=== PATIENT | male | born 1970 | race African-American/Black ===

== ENCOUNTER 2022-12-11 08:23 | Emergency (ER) | payer OTHER ==
--- OUTSIDE RECORDS SUMMARY | 2022-12-11 08:27 | XMS REPORT | Continuity of Care Document ---
:1970 Author Organization [facility] t Address [address] [place] [address] Care Team Providers Name Role Phone Nathan Burden Primary Care Physician Indu Ramirez Attending Clinician Unknown, Attending Attending Clinician Unavailable INDU HARRY Attending Clinician Unavailable Doctor Unassigned, [place] Attending Clinician Unavailable Nathan Chang MD Attending Clinician Payers Payer Name Policy Type Policy Number Effective Date Expiration Date S ource Problems Condition Condition Condition Status Onset Resolution Last Treating Co mments Source Name Details Category Date Date Treatment Clinician Date No known No known Disease Unive rs active active ity of problems problems [facility] Allergies, Adverse Reactions, Alerts Allergy Allergy Status Severity Reaction(s) Onset Inactive Treating Comm ents Source Name Type Date Date Clinician NO KNOWN Drug Active Univers ALLERGIE Class ity of S [facility] Social History Social Habit Start Date Stop Date Quantity Comments Source Exposure to 2022-11-04 2022-11-14 Yes [facility]-CoV-2 00:00:00 18:00:00 [facility] (event) [place] Tobacco use and 2022-11-14 2022-11-14 Smokeless tobacco Un iversity of exposure 00:00:00 00:00:00 non-user [facility] Sex Assigned At [birth year] [facility] 00:00:00 00:00:00 Smoking Status Start Date Stop Date Source Tobacco smoking consumption [facility] unknown Never smoked tobacco [facility] Medications Ordered Filled Start Stop Current Ordering Indication Dosage Frequency Signature Comments Components Source Medication Medication Date Date Medication? Clinician (SIG) Name Name amLODIPine 2021-11 Yes 5mg Take 5 mg Un estee 5 mg tablet 2-30 by mouth ity of 18:07: in the [place] 13 morning. Medical Branch nirmatrelvi 2021-11 Yes [id number] 3{tbl} Take 3 Univers r-ritonavir 2-30 tablets by it y of (PAXLOVID, 00:00: mouth in [place] EUA,) 300 00 the Medical mg (150 mg morning Branch x 2)-100 mg and 3 tablet tablets in the evening. Immunizations Ordered Filled Immunization Date Status Comments Sourc e Immunization Name Name SARS-COV-2 COVID-19 2021-02-10 Completed Unive rsity of MODERNA 12+ YRS 00:00:00 [facility] ical VACCINE Branch SARS-COV-2 COVID-19 2021-02-10 Completed Unive rsity of MODERNA 12+ YRS 00:00:00 [facility] ical VACCINE Branch SARS-COV-2 COVID-19 2021-01-13 Completed Unive rsity of MODERNA 12+ YRS 00:00:00 [facility] ical VACCINE Branch SARS-COV-2 COVID-19 2021-01-13 Completed Unive rsity of MODERNA 12+ YRS 00:00:00 [facility] ical VACCINE Branch Vital Signs Vital Name Observation Time Observation Value Comments Source Systolic blood 2022-11-15 00:09:00 149 mm[Hg] Univer sity of pressure [facility] Diastolic blood 2022-11-15 00:09:00 92 mm[Hg] Unive rsity of pressure [facility] Heart rate 2022-11-15 00:07:00 48 /min [facility] Body temperature 2022-11-15 00:07:00 37.17 Allie [facility] Respiratory rate 2022-11-15 00:07:00 16 /min [facility] Body weight 2022-11-15 00:07:00 158.759 kg [facility] Oxygen saturation in 2022-11-15 00:07:00 97 /min [facility] blood by [facility] Pulse oximetry Branch Procedures Procedure Date / Time Performed Performing Clinician Sourc e POCT SARS-COV-2 2022-11-15 00:05:00 Indu Harry [place] [facility] [place] ANTIGEN (BINAX NOW) Medical Bran ch ASSIGNMENT OF BENEFITS 2022-11-14 23:53:59 Doctor Unassigned, No [facility] Branch VASCULAR SCREENING 2022-03-06 20:03:32 Nathan Chang [facility] HEART SCAN PLUS CT HEART SCAN PLUS W 2022-03-06 17:51:43 [facility] Plan of Care Planned Activity Planned Date Details Comments Source Future Scheduled 2022-10-28 Hepatitis C screening [facility] Test 08:54:22 (procedure) [code = 094618412] Future Scheduled 2022-10-28 COLONOSCOPY SCREENING [facility] Test 08:54:22 [code = COLONOSCOPY SCREENING] Future Scheduled 2022-10-28 SHINGLES VACCINES (1 Met [facility] Test 08:54:22 of 2) [code = SHINGLES VACCINES (1 of 2)] Future Scheduled 2022-10-28 COVID-19 VACCINE (4 - [facility] Test 08:54:22 Booster for Moderna series) [code = COVID-19 VACCINE (4 - Booster for Moderna series)] Future Scheduled 2022-10-28 INFLUENZA VACCINE [facility] Test 08:54:22 [code = INFLUENZA VACCINE] Encounters Start End Encounter Admission Attending Care Care Encounter Source Date/Time Date/Time Type Type Clinicians Facility Department ID 2022-11-14 2022-11-14 Urgent Indu Harry [facility] [id number] Univers 18:20:00 18:40:00 Care Unknown, Attending HEALTH [id number] [facility] [id number] [place] ZENON?BLEA [id number] [address] MEDICAL OFFICE BUILDING 2022-11-14 2022-11-14 Outpatient R KAMRYN LAJOSE [facility] [id number] [facility] 18:20:00 18:20:00 INDU rojo [facility] 2022-11-14 2022-11-14 Orders Doctor MUSTAFA [id number] Univers 00:00:00 00:00:00 Only Unassigned, EVELIO 350.1.13.10 ity of [place] [facility] 4.2.7.2.686 [place] [id number] [place] [id number] Branch 2022-03-06 2022-03-06 [facility], 1.2.840.1 [id number] Methodi 12:24:17 23:59:00 Encounter Nathan [id number] 3.430.2.7 Hospit a .3.722701 l .8 2022-03-06 2022-03-06 [facility], 1.2.840.1 [id number] Methodi 12:24:02 23:59:00 Encounter Nathan [id number] 3.430.2.7 Hospit a .3.441804 l .8 2022-03-06 2022-03-06 Outpatient [facility] [id number] [address] 00:00:00 00:00:00 NATHAN [address] 2022-03-06 2022-03-06 Outpatient [facility] [id number] [place] 00:00:00 00:00:00 NATHAN [address] 2022-03-06 2022-03-06 Travel 1.2.840.1 [id number] [id number] Methodi 00:00:00 00:00:[address] 3.430.2.7 0.2.7.3.698 Ho spita .3.134508 084.8 l .8 2022-02-17 2022-02-17 Travel 1.2.840.1 1.2.961.037 [id number] Methodi 00:00:00 00:00:[address] 3.430.2.7 0.2.7.3.698 Ho spita .3.340555 084.8 l .8 2022-02-17 2022-02-17 Transcribe [facility], 1.2.840.1 [id number] Methodi 00:00:00 00:00:00 Orders Nathan [id number] 3.430.2.7 Hospit a .3.065568 l .8 Results Test Description Test Time Test Comments Results Result Comments Source POCT SARS-COV-2 ANTIGEN (BINAX NOW) 2022-11-15 00:20:00 Test Item Value Reference Range Interpretation Comme nts POCT SARS-COV-2 ANTIGEN (test code = 86872-6) Positive Not Dete cted A On board controls acceptable with C Line (test code = 3574) Yes Lab Interpretation (test code = 31957-0) Abnormal [facility]
[2022-12-11] MEDS ORDERED: ONDANSETRON 4 MG/2 ML VIAL ONE (09:09)
[2022-12-11] MEDS ORDERED: MORPHINE 4 MG/ML SYR ONE (09:09)
[2022-12-11 09:10] LABS: Urine Blood 2+ (Negative); Urine Glucose Negative (Negative); Urine Protein Negative (Negative); Urine Specific Gravity 1.025 (1.005-1.030)
[2022-12-11 09:49] LABS: Absolute Lymphocytes (CBC) 1.6 K/uL (0.7-4.9); Hematocrit 38.7 % (39.6-49.0); Lymphocytes % 29.3 % (15.3-44.8); MCV 78.9 fL (80-100); MPV 9.1 fL (7.6-11.3); RBC Red Blood Cell Count 4.91 M/uL (4.33-5.43)
[2022-12-11 10:11] LABS: Albumin 3.4 g/dL (3.4-5.0); Bilirubin Total 0.3 mg/dL (0.2-1.0); Protein, Total 8.1 g/dL (6.4-8.2)
--- NOTE | 2022-12-11 10:21 | RAD REPORT ---
EXAM DESCRIPTION: CT - Stone Protocol - 12/11/2022 10:10 am CLINICAL HISTORY: Flank pain. right flank pain COMPARISON: CT-STONE PROTOCOL dated 01/31/2011 TECHNIQUE: Axial images were obtained without oral or IV contrast. Lack of contrast limits solid org an and vascular assessment. The [id number] spans the entirety of the system partially obscuring uppermost abdomen and lung bases. Coronal reformatted images were obtained and reviewed. All CT scans are performed using dose optimization technique as appropriate and may include automated exposure control or mA/KV adjustment according to patient size. FINDINGS: The lower lung krishna are clear. Postsurgical changes affect the stomach. Small hiatal her claire. Imaged portions of the liver and spleen show no suspicious findings on non-contrast imaging. The panc reas and adrenal glands are normal. No pathologic lymphadenopathy in the abdomen or pelvis. Punctate 1 mm calculus seen right UVJ with mild right hydronephrosis. Additional punctate stones are seen in both kidneys. No bowel obstruction, free air, free fluid or abscess. Normal appendix. No significant bony abnormality. IMPRESSION: Tiny punctate calculus right UVJ with mild right hydronephrosis. Punctate bilateral nephrolithiasis without hydronephrosis.
[2022-12-11] MEDS ORDERED: NA CHLORIDE 0.9% 1,000 ML ONE (10:38)
[2022-12-11] MEDS ORDERED: KETOROLAC 30 MG/ML INJ ONE (10:38)
[2022-12-11] MEDS ORDERED: TAMSULOSIN 0.4 MG SR CAP ONE (10:38)
--- NOTE | 2022-12-11 11:13 | ER ---
Nurse's Notes [facility] Name: Matt Paniagua Age: 52 yrs Sex: Male : 1970 Arrival Date: 12/11/2022 Time: 08:32 Bed 7 Private MD: Diagnosis: Calculus of ureter Presentation: 12/11 08:52 Chief complaint: Patient states: right low back pain since yesterday , happened after iw lifting something, took a tylenol but the pain got worse this morning, denies blood in urin, he feels like he has to urinate and he had some pain with urination this morning , hx of kidney stone 10 years ago. Coronavirus screen: At this time, the client does not indicate any symptoms associated with coronavirus-19. Ebola Screen: Patient negative for fever greater than or equal to 101.5 degrees Fahrenheit, and additional compatible Ebola Virus Disease symptoms Patient denies exposure to infectious person. Patient denies travel to an Ebola-affected area in the 21 days before illness onset. No symptoms or risks identified at this time. Initial Sepsis Screen: Does the patient meet any 2 criteria? No. Patient's initial sepsis screen is negative. Does the patient have a suspected source of infection? No. Patient's initial sepsis screen is negative. Risk Assessment: Do you want to hurt yourself or someone else? Patient reports no desire to harm self or others. Onset of symptoms was December 11, 2022. 08:52 Method Of Arrival: Ambulatory iw 08:52 Acuity: NASIMA 3 iw Historical: - Allergies: 08:54 No Known Allergies; iw - Home Meds: 08:54 amlodipine oral [Active]; multivitamin oral [Active]; iw - PMHx: 08:54 Kidney stone; Hypertensive disorder; iw - PSHx: 08:54 gastric bypass; cyst removed from leg; iw - Immunization history:: Client reports receiving the 2nd dose of the Covid vaccine. - Social history:: Smoking status: Patient denies any tobacco usage or history of. Screenin:30 [facility] ED Fall Risk Assessment (Adult) History of falling in the last 3 months, ld1 including since admission No falls in past 3 months (0 pts). Abuse screen: Denies threats or abuse. Denies injuries from another. Nutritional screening: No deficits noted. Tuberculosis screening: No symptoms or risk factors identified. Assessment: 09:30 General: Appears in no apparent distress. uncomfortable, Behavior is cooperative, ld1 anxious. Pain: Complains of pain in right low back Pain does not radiate. Pain currently is 9 out of 10 on a pain scale. Quality of pain is described as pressure, throbbing, Pain began 1 day ago. 09:30 Neuro: Level of Consciousness is awake, alert, obeys commands, Oriented to person, ld1 place, time, situation. Cardiovascular: Capillary refill < 3 seconds Patient's skin is warm and dry. Rhythm is sinus bradycardia. Respiratory: Airway is patent Respiratory effort is even, unlabored. GI: Abdomen is flat, non-distended. EENT: No signs and/or symptoms were reported regarding the EENT system. Derm: No signs and/or symptoms reported regarding the dermatologic system. 09:30 : Reports pain in right flank(s), urgency. ld1 10:12 Reassessment: pt transported back from CT via stretcher. vg1 10:39 Reassessment: Patient appears in no apparent distress at this time. Patient and/or ld1 family updated on plan of care and expected duration. Pain level reassessed. Patient is alert, oriented x 3, equal unlabored respirations, skin warm/dry/pink. Vital Signs: 08:52 BP 151 / 90; Pulse 51; Resp 16; Temp 97.8; Pulse Ox 100% on R/A; Weight 149.69 kg; iw Height 6 ft. 1 in. (185.42 cm); Pain 8/10; 09:30 BP 129 / 79; Pulse 53; Resp 18; Pulse Ox 97% on R/A; ld1 10:39 BP 119 / 73; Pulse 49; Resp 18; Pulse Ox 100% on R/A; Pain 8/10; ld1 08:52 Body Mass Index 43.54 (149.69 kg, 185.42 cm) iw ED Course: 08:32 Patient arrived in ED. am2 08:34 Wai Milan PA is PHCP. jmm 08:34 Isael Peck MD is Attending Physician. jmm 08:54 Triage completed. iw 08:54 Arm band placed on. iw 08:57 Josefina Henning, KATELYN is Primary Nurse. ld1 09:30 Patient has correct armband on for positive identification. Placed in gown. Bed in low ld1 position. Call light in reach. Side rails up X2. forester aide on. Pulse ox on. NIBP on. Door closed. Noise minimized. Warm blanket given. 09:30 Initial lab(s) drawn, by me, sent to lab. Inserted saline lock: 22 gauge in left vg1 antecubital area, using aseptic technique. Blood collected. 09:30 No provider procedures requiring assistance completed. ld1 10:12 Stone Protocol In Process Unspecified. EDMS 11:12 Saran Farooq MD is Referral Physician. m 11:41 IV discontinued, intact, bleeding controlled, No redness/swelling at site. ld1 Administered Medications: 09:31 Drug: Zofran (Ondansetron) 4 mg Route: IVP; Site: left antecubital; vg1 10:39 Follow up: Response: No adverse reaction ld1 09:33 Drug: morphine 4 mg Route: IVP; Infused Over: 4 mins; Site: left antecubital; vg1 10:39 Follow up: Response: Pain is unchanged, physician notified ld1 10:39 Drug: NS 0.9% 1000 ml Route: IV; Rate: 1 bolus; Site: left antecubital; ld1 11:35 Follow up: IV Status: Completed infusion; IV Intake: 1000ml vg1 10:39 Drug: Flomax (tamsulosin) 0.4 mg Route: PO; ld1 10:39 Drug: Ketorolac 30 mg Route: IVP; Site: left antecubital; ld1 Medication: 09:30 VIS not applicable for this client. ld1 Intake: 11:35 IV: 1000ml; Total: 1000ml. vg1 Outcome: 11:12 Discharge ordered by . [facility] 11:41 Discharged to home ambulatory, with family. ld1 11:41 Condition: stable 11:41 Discharge instructions given to patient, family, Instructed on discharge instructions, follow up and referral plans. medication usage, Demonstrated understanding of instructions, follow-up care, medications, Prescriptions given X 2. 11:42 Patient left the ED. ld1 Signatures: Dispatcher [employer] EDMS Wai Milan PA PA Alia Drummond RN RN iw Moreno, Amanda am2 Colleen Salinas RN RN 1 Dibbern, Josefina, RN RN ld1 Corrections: (The following items were deleted from the chart) 09:49 09:30 : No signs and/or symptoms were reported regarding the genitourinary system. ld1ld1
--- NOTE | 2022-12-11 11:14 | EDPHYS ---
Physician Documentation [facility] Name: Matt Paniagua Age: 52 yrs Sex: Male : 1970 Arrival Date: 12/11/2022 Time: 08:32 Bed 7 Private MD: ED Physician Isael Peck HPI: 12/11 09:01 This 52 yrs old Black Male presents to ER via Ambulatory with complaints of Back Pain. jm 09:01 The patient presents with pain that is acute. Onset: The symptoms/episode jmm began/occurred acutely, yesterday. The pain radiates to the abdomen. Associated signs and symptoms: Pertinent positives: abdominal pain. This a 52-year-old male with history of previous kidney stones and hypertension the presents emerged part with complaints of right flank pain beginning yesterday which was mild. Pain intensified last night along with episodes of nausea. Denies any diarrhea. Denies hematuria. Denies fever. Historical: - Allergies: 08:54 No Known Allergies; iw - Home Meds: 08:54 amlodipine oral [Active]; multivitamin oral [Active]; iw - PMHx: 08:54 Kidney stone; Hypertensive disorder; iw - PSHx: 08:54 gastric bypass; cyst removed from leg; iw - Immunization history:: Client reports receiving the 2nd dose of the Covid vaccine. - Social history:: Smoking status: Patient denies any tobacco usage or history of. ROS: 09:01 Constitutional: Negative for fever, chills, and weight loss, Cardiovascular: Negative jmm for chest pain, palpitations, and edema, Respiratory: Negative for shortness of breath, cough, wheezing, and pleuritic chest pain. 09:01 Abdomen/GI: Positive for abdominal pain, nausea. 09:01 Back: Positive for flank pain, on the right. 09:01 All other systems are negative. Exam: 09:01 Constitutional: This is a well developed, well nourished patient who is awake, alert, jmm and in no acute distress. Head/Face: atraumatic. Eyes: EOMI, no conjunctival erythema appreciated ENT: Moist Mucus Membranes Neck: Trachea midline, Supple Chest/axilla: Normal chest wall appearance and motion. Cardiovascular: Regular rate and rhythm. No edema appreciated Respiratory: Normal respirations, no respiratory distress appreciated Abdomen/GI: Non distended 09:01 Skin: General appearance color normal MS/ Extremity: Moves all extremities, no obvious deformities appreciated, no edema noted to the lower extremities Neuro: Awake and alert Psych: Behavior is normal, Mood is normal, Patient is cooperative and pleasant 09:01 Back: CVA tenderness, that is mild, is noted on the right. Vital Signs: 08:52 BP 151 / 90; Pulse 51; Resp 16; Temp 97.8; Pulse Ox 100% on R/A; Weight 149.69 kg; iw Height 6 ft. 1 in. (185.42 cm); Pain 8/10; 09:30 BP 129 / 79; Pulse 53; Resp 18; Pulse Ox 97% on R/A; ld1 10:39 BP 119 / 73; Pulse 49; Resp 18; Pulse Ox 100% on R/A; Pain 8/10; ld1 08:52 Body Mass Index 43.54 (149.69 kg, 185.42 cm) iw MDM: 09:01 Patient medically screened. [facility] 11:11 Data reviewed: vital signs, nurses notes. I considered the following discharge [facility] prescriptions or medication management in the emergency department Medications were administered in the Emergency Department. See MAR. Historians other than the Patient: Spouse/Significant Other: Significant other. Counseling: I had a detailed discussion with the patient and/or guardian regarding: the historical points, exam findings, and any diagnostic results supporting the discharge/admit diagnosis, lab results, radiology results, the need for outpatient follow up, to return to the emergency department if symptoms worsen or persist or if there are any questions or concerns that arise at home. ED course: Pain is alleviated in the ED. Urine did not show any signs of infection. Patient does not appear septic. Patient advised to follow with urology for further evaluation otherwise given strict return precautions. Patient understood and agrees to plan of care.. 12/11 09:02 Order name: CBC with Diff; Complete Time: 09:51 [facility] 12/11 09:02 Order name: CMP; Complete Time: 10:14 [facility] 12/11 09:02 Order name: Lipase; Complete Time: 10:14 [facility] 12/11 09:10 Order name: Urine Dipstick-Ancillary; Complete Time: 09:13 [facility] 12/11 09:51 Order name: CT Stone Protocol [facility] 12/11 09:55 Order name: Stone Protocol; Complete Time: 10:22 [facility] 12/11 09:02 Order name: IV Saline Lock; Complete Time: 09:43 [facility] 12/11 09:02 Order name: Labs collected and sent; Complete Time: 43 [facility] 12/11 09:02 Order name: Urine Dipstick-Ancillary (obtain specimen); Complete Time: : [facility] Administered Medications: 09:31 Drug: Zofran (Ondansetron) 4 mg Route: IVP; Site: left antecubital; vg1 10:39 Follow up: Response: No adverse reaction ld1 09:33 Drug: morphine 4 mg Route: IVP; Infused Over: 4 mins; Site: left antecubital; vg1 10:39 Follow up: Response: Pain is unchanged, physician notified ld1 10:39 Drug: NS 0.9% 1000 ml Route: IV; Rate: 1 bolus; Site: left antecubital; ld1 11:35 Follow up: IV Status: Completed infusion; IV Intake: 1000ml vg1 10:39 Drug: Flomax (tamsulosin) 0.4 mg Route: PO; ld1 10:39 Drug: Ketorolac 30 mg Route: IVP; Site: left antecubital; ld1 Disposition: 13:32 I reviewed the patient's care provided by the Advanced Practice Provider and agree with jrGlenis the diagnosis and treatment plan. Disposition Summary: 12/11/22 11:12 Discharge Ordered Location: Home [facility] Condition: Stable [facility] Diagnosis - Calculus of ureter [facility] Followup: [facility] - With: Saran Farooq MD - When: 2 - 3 days - Reason: Recheck today's complaints, Continuance of care, Re-evaluation by your physician Discharge Instructions: - Discharge Summary Sheet [facility] - Kidney Stones [facility] - Dietary Guidelines to Help Prevent Kidney Stones [facility] Forms: - Medication Reconciliation Form [facility] - Thank You Letter [facility] - Antibiotic Education [facility] - Prescription Opioid Use [facility] Prescriptions: - ondansetron 4 mg Oral tablet,disintegrating - place 1 tablet by TRANSLINGUAL route every 4-6 hours As needed; 20 tablet; [facility] Refills: 0, Product Selection Permitted - Diclofenac Sodium 75 mg Oral Tablet Sustained Release - take 1 tablet by ORAL route 2 times per day; 30 tablet; Refills: 0, Product [facility] Selection Permitted Signatures: Dispatcher [employer] Wai Saleh PA PA jmm Williams, Irene, RN RN iw Colleen Salinas, RN RN vg1 Josefina Henning RN RN ld1 Isael Peck MD MD [id number]
[2022-12-11 12:22] VITALS: TEMP 97.8
[2022-12-11 12:25] VITALS: BP 119/73; O2SAT 100
== END 2022-12-11 11:42 | disposition home or self-care (01) ==
LOC: ER 08:23
DX: N20.1 Calculus of ureter (principal); Z87.442 Personal history of urinary calculi; I10 Essential (primary) hypertension
CPT/HCPCS: 96361; 85025; 36415; 81003; 83690; 80053; 76377; 74176; 96375; 96374; 99284; J7030; J2405

== ENCOUNTER 2023-04-17 09:22 | Day surgery (SDC) | payer OTHER ==
[2023-04-14 09:05] LABS: Hematocrit 36.8 % (39.6-49.0); Lymphocytes % 38.9 % (15.3-44.8); MPV 8.5 fL (7.6-11.3); RBC Red Blood Cell Count 4.66 M/uL (4.33-5.43)
[2023-04-14 09:13] LABS: Potassium 4.1 mEq/L (3.5-5.1)
--- NOTE | 2023-04-15 07:08 | EKG ---
Test Date: 2023-04-14 Test Time: 08:41:28 Fish Processing Supervisor: ANTHONY MEASUREMENT RESULTS: Intervals: Rate: 55 RI: 180 QRSD: 110 QT: 422 QTc: 403 Protivin: P: 62 RI: 180 QRS: 48 T: 28 INTERPRETIVE STATEMENTS: Sinus bradycardia Otherwise normal ECG Compared to ECG 06/11/2003 18:29:00 Sinus rhythm no longer present ST (T wave) deviation no longer present Possible ischemia no longer present Electronically Signed On 04-15-23 07:06:40 CDT by Steve Mendez
[2023-04-17] MEDS ORDERED: CEFAZOLIN SODIUM 1 GM/VIAL ONE (09:39)
[2023-04-17] MEDS ORDERED: Ringers Lactate 1,000 ML IV ONE (09:39)
[2023-04-17] MEDS ORDERED: BUPIVACAINE 0.25% PF 30 ML VIAL ONE (11:25)
[2023-04-17] MEDS ORDERED: FENTANYL CITR 100 MCG/2 ML ONE (11:42)
[2023-04-17] MEDS ORDERED: propofoL 200 MG/20 ML VIAL IV ONE ×2 (11:44→12:04)
[2023-04-17] MEDS ORDERED: MIDAZOLAM HCL 2 MG/2 ML INJ ONE (11:45)
[2023-04-17] MEDS ORDERED: LIDOCAINE 2% MPF 5 ML VIAL ONE (11:45)
[2023-04-17] MEDS ORDERED: ONDANSETRON 4 MG/2 ML VIAL ONE (11:46)
[2023-04-17] MEDS ORDERED: dexAMETHasone 10 MG/ML VIAL ONE (12:11)
[2023-04-17] MEDS ORDERED: KETOROLAC 30 MG/ML INJ ONE (12:53)
[2023-04-17] MEDS: HYDROMORPHONE HCL 1 MG/ML INJ ONE ×2 (13:11→13:29)
[2023-04-17] MEDS: MEPERIDINE HCL 25 MG/ML SYR ONE ×2 (13:18→13:24)
[2023-04-17 13:21] VITALS: O2SAT 100
[2023-04-17] MEDS ORDERED: HYDROCODONE/APAP 7.5/325 MG TAB ONE (15:02)
[2023-04-17 16:11] VITALS: BP 113/72; TEMP 97.4
--- NOTE | 2023-04-17 22:36 | OP ---
Date of Procedure: 04/17/2023 Surgeon: Chris Evans MD Preoperative Diagnosis: Right knee pain with mechanical symptoms, probable meniscal tear or tears, a lso with associated arthritic changes. Postoperative Diagnoses: 1.Very large displaceable medial meniscal tear. 2.Fraying of the lateral meniscus. 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 Procedure: Debridement medial meniscal tear and lateral meniscal fraying. Estimated Blood Loss: Less than 10 cc. Complications: There were no complications. Specimen: No pathology specimen sent. Indications For Operation: Mr. Paniagua is a 52-year-old male who is actively employed. He is compl aining of mechanical symptoms including popping, clicking, as well as pain associated with his knee. He has x-rays and MRI, which demonstrate both medial meniscal tear, as well as significant degenerat marilyn articular changes. We discussed with him at length that surgical treatment for arthritis would i nvolve arthroplasty, however, mechanical symptoms can be treated with arthroscopy. This appears to b e at least a major complaint that he is having. Risks, benefits, and alternatives of this particular procedure again discussed with him. He states he understands things as presented and wishes to proc eed. Description Of Procedure: The patient was taken to the operating room and placed in supine position. General anesthesia was obtained by the staff. Following this, a well-padded tourniquet was placed on superior right thigh. Right lower extremity was then prepped and draped in the usual sterile fas ion procedure. Following this, a standard superior medial arthroscopy portal was then placed with li beration of approximately 10 cc of scanty synovial fluid, which appears relatively normal. Following this, a standard inferolateral arthroscopy portal was then established atraumatically with 1 pass. The knee was then sequentially examined including suprapatellar pouch, medial and lateral gutters, me dial and lateral compartments, as well as notch, patellofemoral joint. Operative findings included s ome arthritic changes of the patellofemoral joint, as well as extensive arthritic changes of the medi al compartment consistent with grade 4 chondromalacia. Also seen is a very large and displaced full medial meniscal tear with essentially full thickness loss at its midsubstance with a flap anteriorly which appears to be easily displaced but within the joint. Also seen is some fraying of the lateral meniscus, as well as diffuse synovial hypertrophy. A standard inferomedial arthroscopy portal was th en performed using a needle for localization as the knee is quite large. This allows for easy entry as the working portal and the medial meniscus was then debrided back to a firm hook, stable, well con toured base using a combination of hand instruments and shaver. Attention was then turned to the lat eral compartment and a small amount of debridement was done there. The knee was again examined, alth ough the areas without any further pathology seen which was amenable to arthroscopic intervention. T he inferior arthroscopy portals were then stapled shut. Superior medial arthroscopy portal was then used for placement of Marcaine with epinephrine which was then stapled. The patient was placed in a well-padded sterile dressing, awakened, and taken to recovery room. JACKSON Voice ID: [id number] Report ID: [id number]
== END 2023-04-17 15:30 | disposition home or self-care (01) ==
LOC: OR 09:22
PROVIDERS: ATTEND Orthopaedic Surgery
PROC: 0SBC4ZZ Excision of Right Knee Joint, Percutaneous Endoscopic Approach (ICD-10-PCS; principal; 2023-04-17 11:30)
DX: S83.241D Other tear of medial meniscus, current injury, right knee, subsequent encounter (principal); M17.11 Unilateral primary osteoarthritis, right knee; M94.261 Chondromalacia, right knee
CPT/HCPCS: 93005; 85025; 80048; 36415; 29877; J2704 ×2; J2001; J2250; J3010; J1100; J2175; J1170; J2405; J7120; J0690

== ENCOUNTER 2023-10-21 08:07 | Emergency (ER) | payer OTHER ==
[2023-10-21] MEDS ORDERED: FAMOTIDINE 20 MG/2 ML VIAL IV ONE (08:49)
[2023-10-21 09:22] LABS: Absolute Lymphocytes (CBC) 0.9 K/uL (0.7-4.9); Hematocrit 36.5 % (39.6-49.0); Lymphocytes % 15.5 % (15.3-44.8); MPV 8.9 fL (7.6-11.3); Platelets 103 thou/uL (152-406); RBC Red Blood Cell Count 4.62 M/uL (4.33-5.43)
--- NOTE | 2023-10-21 09:27 | RAD REPORT ---
EXAM DESCRIPTION: Stephanet Single View10/21/2023 8:52 am CLINICAL HISTORY: Cough;Dyspnea COMPARISON: CHEST PA AND LAT 2 VIEW dated 08/21/2014; ABDOMEN 1 VIEW KUB dated 04/27/2013 TECHNIQUE: Portable AP view of the chest. FINDINGS: New patchy left mid to lower lung airspace opacities. Mild interstitial prominence in the right lower lung, less conspicuous on the view zoned to the lower lungs. . No pneumothorax or effusi on. The cardiomediastinal contours are unremarkable. IMPRESSION: New patchy left mid to lower lung airspace opacities concerning for developing pneumonia .
[2023-10-21 09:34] LABS: Protime INR 1.04
[2023-10-21 09:35] LABS: SARS-CoV-2 Antigen Rapid Res Negative (Negative)
[2023-10-21 09:47] LABS: Bilirubin Total 0.5 mg/dL (0.2-1.0); Potassium 3.4 mEq/L (3.5-5.1); Protein, Total 7.1 g/dL (6.4-8.2); Troponin High Sensitivity 14.3 pg/mL (<58.9)
[2023-10-21] MEDS ORDERED: AZITHROMYCIN 500 MG INJ IVPB ONE (10:16)
[2023-10-21] MEDS ORDERED: NA CHLORIDE 0.9% 250 ML ONE (10:16)
[2023-10-21] MEDS ORDERED: CEFTRIAXONE 1000 MG/VIAL ONE (10:16)
--- NOTE | 2023-10-21 11:05 | ER ---
Nurse's Notes [facility] Name: Matt Paniagua Age: 53 yrs Sex: Male : 1970 Arrival Date: 10/21/2023 Time: 08:07 Bed 3 Private MD: Aung Chang V Diagnosis: Pneumonia, unspecified organism Presentation: 10/21 08:10 Chief complaint: Patient states: "I woke up with acid reflux and trouble breathing". aa5 Pt's states "he also had chills and it sounds to me like he probably aspirated,his oxygen level was 88% at home and I gave him Tylenol and Aleve around 6am". Pt also c/o cough and burning chest pain with inspiration. 08:10 Coronavirus screen: cough unrelated to allergies, shortness of breath. Ebola Screen: aa5 Patient denies travel to an Ebola-affected area in the 21 days before illness onset. Initial Sepsis Screen: Does the patient meet any 2 criteria? No. Patient's initial sepsis screen is negative. Does the patient have a suspected source of infection? No. Patient's initial sepsis screen is negative. Risk Assessment: Do you want to hurt yourself or someone else? Patient reports no desire to harm self or others. Onset of symptoms was October 21, 2023. 08:10 Acuity: NASIMA 3 aa5 08:10 Method Of Arrival: Wheelchair aa5 Triage Assessment: 08:15 General: Appears in no apparent distress. uncomfortable, Behavior is calm, cooperative. rs5 Respiratory: Respiratory: Reports shortness of breath at rest. Historical: - Allergies: 08:12 No Known Drug Allergies; ll1 - PMHx: 08:12 Hypertensive disorder; Kidney stone; ll1 08:12 DVT; Gout; Acid Reflux; aa5 - PSHx: 08:12 cyst removed from leg; Gastric Bypass; ll1 08:12 Knee sx for meniscus tear; aa5 - Immunization history:: Adult Immunizations up to date. - Social history:: Smoking status: Patient denies any tobacco usage or history of. - Family history:: not pertinent. - Hospitalizations: : No recent hospitalization is reported. Screenin:15 [facility] [place] ED Fall Risk Assessment (Adult) History of falling in the last 3 months, rs5 including since admission No falls in past 3 months (0 pts) Confusion or Disorientation No (0 pts) Intoxicated or Sedated No (0 pts) Impaired Gait No (0 pts) Mobility Assist Device Used No (0 pt) Altered Elimination No (0 pt) Score/Fall Risk Level 0 - 2 = Low Risk Oriented to surroundings, Maintained a safe environment. Abuse screen: Denies threats or abuse. Nutritional screening: No deficits noted. Tuberculosis screening: No symptoms or risk factors identified. Assessment: 08:15 General: Appears in no apparent distress. uncomfortable, Behavior is calm, cooperative. rs5 Pain: Complains of pain in chest Pain does not radiate. Pain currently is 3 out of 10 on a pain scale. Quality of pain is described as burning, Pain began 4 hours ago. Is continuous, Aggravated by breathing in deeply. Neuro: Level of Consciousness is awake, alert, obeys commands, Oriented to person, place, time, situation. Cardiovascular: Heart tones S1 S2 present Rhythm is regular. Respiratory: Airway is patent Respiratory effort is even, unlabored, Respiratory pattern is regular, symmetrical, Breath sounds are clear bilaterally. GI: Abdomen is round non-distended, Bowel sounds present X 4 quads. Abd is soft and non tender X 4 quads. 08:15 : No signs and/or symptoms were reported regarding the genitourinary system. EENT: No rs5 signs and/or symptoms were reported regarding the EENT system. Derm: Skin is intact, Skin is dry, Skin is normal, Skin temperature is warm. Musculoskeletal: Range of motion: intact in all extremities, swelling noted to lower extremities bilat, pt states "my legs are always like this". 09:05 Pain: Denies pain. rs5 09:05 Reassessment: Patient and/or family updated on plan of care and expected duration. Pain rs5 level reassessed. Patient is alert, oriented x 3, equal unlabored respirations, skin warm/dry/pink. 10:00 Reassessment: Patient and/or family updated on plan of care and expected duration. Pain rs5 level reassessed. Patient is alert, oriented x 3, equal unlabored respirations, skin warm/dry/pink. 11:15 Reassessment: No changes from previously documented assessment. rs5 Vital Signs: 08:10 BP 140 / 86; Pulse 83; Resp 20 S; Temp 98.8(O); Pulse Ox 96% on R/A; aa5 09:10 BP 128 / 76; Pulse 77; Resp 18; Pulse Ox 99% on R/A; rs5 11:10 BP 127 / 72; Pulse 80; Resp 17; Pulse Ox 99% on R/A; rs5 ED Course: 08:09 Patient arrived in ED. rg4 08:10 Paola Iglesias MD is Private Physician. rg4 08:10 Aung Chang MD is Private Physician. rg4 08:10 Arm band placed on Patient placed in an exam room, on a stretcher. aa5 08:12 Jhoan Wilkes MD is Attending Physician. rn 08:15 Patient has correct armband on for positive identification. Fall risk band placed. rs5 Placed in gown. Bed in low position. Side rails up X2. 08:18 Doug Coe, KATELYN is Primary Nurse. rs5 08:26 Triage completed. aa5 08:37 Inserted saline lock: 20 gauge in left antecubital area, using aseptic technique. Blood rs5 collected. 08:54 Chest Single View XRAY In Process Unspecified. EDMS 11:32 No provider procedures requiring assistance completed. IV discontinued, intact, rs5 bleeding controlled, No redness/swelling at site. Pressure dressing applied. Administered Medications: 08:45 Drug: Famotidine IVP 20 mg IVP once; dilute with 10 mL 0.9% NaCl; give over 2 minutes rs5 Route: IVP; Site: left antecubital; 09:05 Follow up: Response: No adverse reaction; Pain is decreased rs5 10:11 Drug: Rocephin IV 1 grams IV at calculated rate once; Given slow IV push per pharmacy rs5 instructions Route: IV; Rate: calculated rate; Site: left antecubital; 10:30 Follow up: Response: No adverse reaction rs5 10:11 Drug: Zithromax IVPB 500 mg IVPB once over 1 hrs; mix in 250 mL NS Route: IVPB; Infused rs5 Over: 1 hrs; Site: left antecubital; 10:30 Follow up: Response: No adverse reaction rs5 Medication: 11:33 VIS not applicable for this client. rs5 Outcome: 11:04 Discharge ordered by . rn 11:32 Discharged to home ambulatory, rs5 11:32 Condition: stable 11:32 Discharge instructions given to patient, family, Instructed on discharge instructions, follow up and referral plans. Demonstrated understanding of instructions, follow-up care, 11:35 Patient left the ED. rs5 Signatures: Dispatcher [employer] EDJhoan Tapia MD MD rn Calderon, Audri RN RN [email or web address] Gina Salinas rg4 Bibi Womack RN RN ll1 Doug Coe RN RN rs5 Corrections: (The following items were deleted from the chart) 08:41 08:12 Arm band placed on Patient placed in an exam room, on a stretcher, [place] [address] 09:53 08:15 Musculoskeletal: Range of motion: intact in all extremities, rs5 rs5
--- NOTE | 2023-10-21 11:05 | EDPHYS ---
Physician Documentation [facility] Name: Matt Paniagua Age: 53 yrs Sex: Male : 1970 Arrival Date: 10/21/2023 Time: 08:07 Bed 3 Private MD: Aung Chang V ED Physician Jhoan Wilkes HPI: 10/21 10:57 This 53 yrs old Black Male presents to ER via Wheelchair with complaints of Breathing rn Difficulty. 10:57 The patient has shortness of breath at rest, with light activity. Onset: The rn symptoms/episode began/occurred last night. Duration: The symptoms are intermittent. The patient's shortness of breath is aggravated by coughing, light activity, is alleviated by nebulizer treatment, rest. Associated signs and symptoms: Pertinent positives: non-productive cough, Pertinent negatives: fever, hemoptysis. Severity of symptoms: At their worst the symptoms were mild in the emergency department the symptoms have improved. The patient has not experienced similar symptoms in the past. Patient and report cough for a few days now, shortness of breath that got worse last night, felt may be some acid reflux and possibly aspirated per . Oxygen was 90% this morning and given nebulizer treatment with improvement of symptoms. No fever. Reports pain when takes a deep breath on the right side. No abdominal pain.. Historical: - Allergies: 08:12 No Known Drug Allergies; ll1 - PMHx: 08:12 Hypertensive disorder; Kidney stone; ll1 08:12 DVT; Gout; Acid Reflux; aa5 - PSHx: 08:12 cyst removed from leg; Gastric Bypass; ll1 08:12 Knee sx for meniscus tear; aa5 - Immunization history:: Adult Immunizations up to date. - Social history:: Smoking status: Patient denies any tobacco usage or history of. - Family history:: not pertinent. - Hospitalizations: : No recent hospitalization is reported. ROS: 10:57 Constitutional: Negative for fever, chills, and weight loss, Eyes: Negative for injury, rn pain, redness, and discharge, Neck: Negative for injury, pain, and swelling, Cardiovascular: Positive for right-sided chest pain with deep breath Respiratory: Positive for cough, mild shortness of breath Abdomen/GI: Negative for abdominal pain, nausea, vomiting, diarrhea, and constipation, Back: Negative for injury and pain, MS/Extremity: Negative for injury and deformity, Skin: Negative for injury, rash, and discoloration, Neuro: Negative for headache, weakness, numbness, tingling, and seizure, Exam: 10:57 Constitutional: This is a well developed, well nourished patient who is awake, alert, rn and in no acute distress. Head/Face: Normocephalic, atraumatic. Cardiovascular: Regular rate and rhythm. No pulse deficits. Respiratory: Clear bilateral breath sounds. No tachypnea. No wheezing. Abdomen/GI: Soft, non-tender MS/ Extremity: Pulses equal, no cyanosis. Neuro: Awake and alert, GCS 15 Vital Signs: 08:10 BP 140 / 86; Pulse 83; Resp 20 S; Temp 98.8(O); Pulse Ox 96% on R/A; aa5 09:10 BP 128 / 76; Pulse 77; Resp 18; Pulse Ox 99% on R/A; rs5 11:10 BP 127 / 72; Pulse 80; Resp 17; Pulse Ox 99% on R/A; rs5 MDM: 08:12 Patient medically screened. rn 10:57 Differential diagnosis: Anemia Anxiety Reaction Bronchitis Myocardial Infarction rn pneumonia, Pneumothorax pulmonary edema. 11:00 Data reviewed: vital signs, nurses notes, lab test result(s), radiologic studies, plain rn films, and as a result, I will admit patient. Consideration of Admission/Observation Escalation of care including admission/observation considered. Patient and declined admission, want to go home. Independent interpretation of the following test(s) in the Emergency Department X-Ray: My interpretation is Chest x-ray images with bibasilar opacities, possible pneumonia per my interpretation.. Counseling: I had a detailed discussion with the patient and/or guardian regarding the historical points, exam findings, and any diagnostic results supporting the discharge/admit diagnosis, lab results, radiology results, to return to the emergency department if symptoms worsen or persist or if there are any questions or concerns that arise at home. Response to treatment: the patient's symptoms have markedly improved after treatment, Oxygen now 99% without oxygen therapy or inhaler or nebulizer here., and as a result, I will discharge patient. ED course: Spoke with patient and regarding possible admission, they declined, they would rather go home with antibiotics and return if anything worsens. states knows what to look for, has pulse oximeter at home, has nebulizer at home, requests refill of albuterol. 12 08:19 Order name: Blood Culture Adult (2) rn 10/21 08:19 Order name: CBC with Diff; Complete Time: 09:42 rn 10/21 08:19 Order name: CMP; Complete Time: 11:00 rn 10/21 08:19 Order name: Lactate w/ 2H reflex if indic.; Complete Time: 09:42 rn 10/21 08:19 Order name: Protime (+inr); Complete Time: 09:42 rn 10/21 08:19 Order name: Ptt, Activated; Complete Time: 09:42 rn 10/21 08:19 Order name: Flu; Complete Time: 09:42 rn 10/21 08:19 Order name: SARS RAPID; Complete Time: 09:42 rn 10/21 08:19 Order name: Troponin High Sensitivity; Complete Time: 11:00 rn 10/21 08:19 Order name: BNP; Complete Time: 11:00 rn 10/21 09:13 Order name: Glucose, Ancillary Testing; Complete Time: 09:42 EDMS 10/21 08:19 Order name: Chest Single View XRAY; Complete Time: 09:42 rn 10/21 08:19 Order name: Accucheck; Complete Time: 08:40 rn 10/21 08:19 Order name: Cardiac monitoring; Complete Time: 08:24 rn 10/21 08:19 Order name: EKG - Nurse/Tech; Complete Time: 08:36 rn 10/21 08:19 Order name: IV Saline Lock - Large Bore; Complete Time: 08:36 rn 10/21 08:19 Order name: Labs collected and sent; Complete Time: 08:36 rn 10/21 08:19 Order name: O2 Per Protocol; Complete Time: 08:24 rn 10/21 08:19 Order name: O2 Sat Monitoring; Complete Time: 08:24 rn 10/21 08:19 Order name: Vital Signs; Complete Time: 08:24 rn 10/21 09:07 Order name: Labs - recollect needed: recollect light green; Complete Time: 09:44 bd Administered Medications: 08:45 Drug: Famotidine IVP 20 mg IVP once; dilute with 10 mL 0.9% NaCl; give over 2 minutes rs5 Route: IVP; Site: left antecubital; 09:05 Follow up: Response: No adverse reaction; Pain is decreased rs5 10:11 Drug: Rocephin IV 1 grams IV at calculated rate once; Given slow IV push per pharmacy rs5 instructions Route: IV; Rate: calculated rate; Site: left antecubital; 10:30 Follow up: Response: No adverse reaction rs5 10:11 Drug: Zithromax IVPB 500 mg IVPB once over 1 hrs; mix in 250 mL NS Route: IVPB; Infused rs5 Over: 1 hrs; Site: left antecubital; 10:30 Follow up: Response: No adverse reaction rs5 Disposition Summary: 10/21/23 11:04 Discharge Ordered Notes: Location: Home rn Problem: new rn Symptoms: have improved rn Condition: Stable rn Diagnosis - Pneumonia, unspecified organism rn Followup: rn - With: Private Physician - When: 2 - 3 days - Reason: Recheck today's complaints, Re-evaluation by your physician Discharge Instructions: - Discharge Summary Sheet rn - Community-Acquired Pneumonia, Adult rn Forms: - Work release form bd - Family Work Release bd - Medication Reconciliation Form rn - Thank You Letter rn - Antibiotic editing internship - Prescription Opioid Use rn - Patient Portal Instructions rn - Leadership Thank You Letter rn Prescriptions: - albuterol sulfate 2.5 mg /3 mL (0.083 %) Inhalation Solution for Nebulization - nebulize 3 milliliter INHALATION route every 4 to 6 hours As needed as needed rn for bronchospasm; 1 Pack; Refills: 0, Product Selection Permitted - levofloxacin 750 mg Oral tablet - take 1 tablet ORAL route once daily for 7 days; 7 tablet; Refills: 0, Product rn Selection Permitted Signatures: Dispatcher [employer] Heike Crystal Roman, MD MD rn Calderon, Audri RN RN aa5 Bibi Womack RN RN ll1 Doug Coe RN RN rs5
[2023-10-21 16:39] VITALS: TEMP 98.8
[2023-10-21 16:49] VITALS: O2SAT 99
[2023-10-21 17:00] VITALS: BP 127/72
--- NOTE | 2023-10-27 14:09 | EKG ---
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
== END 2023-10-21 11:35 | disposition home or self-care (01) ==
LOC: ER 08:07
DX: J18.9 Pneumonia, unspecified organism (principal); Z11.52 Encounter for screening for COVID-19; I10 Essential (primary) hypertension; Z86.718 Personal history of other venous thrombosis and embolism
CPT/HCPCS: 93005; 87040 ×2; 85025; 36415; 85610; 82947; 83605; 85730; 84484; 80053; 83880; 87804 ×2; 71045; 96375; 96374; 99284; 87811; J7050; J0696

== ENCOUNTER 2024-07-22 14:43 | Emergency (ER) | payer OTHER ==
--- NOTE | 2024-07-22 16:08 | RAD REPORT ---
EXAM DESCRIPTION: CT - Head Brain Wo Cont - 07/22/2024 3:35 pm CLINICAL HISTORY: HEADACHE COMPARISON: No comparisons TECHNIQUE: Noncontrast head CT images were obtained without IV contrast. Multiplanar reformats were generated and reviewed. All CT scans are performed using dose optimization technique as appropriate and may include automated exposure control or mA/KV adjustment according to patient size. FINDINGS: No intracranial hemorrhage, mass, or edema. Midline structures are unremarkable. Normal ventricular caliber for age. [place]-white matter differentiation is preserved, without evidence of acute infarct. No abnormal extra- axial fluid collections. Mucous retention cyst in the right maxillary sinus. Mastoid air cells and visualized portions of the paranasal sinuses are otherwise clear. No acute bony findings. IMPRESSION: No evidence of an acute intracranial process.
[2024-07-22] MEDS ORDERED: METOCLOPRAMIDE 10 MG/2mL INJ ONE (16:51)
[2024-07-22] MEDS ORDERED: KETOROLAC 30 MG/ML INJ ONE (16:51)
[2024-07-22] MEDS ORDERED: DIPHENHYDRAMINE 50 MG/ML VIAL ONE (16:51)
[2024-07-22] MEDS ORDERED: NA CHLORIDE 0.9% 1,000 ML ONE (16:52)
--- NOTE | 2024-07-22 17:33 | EDPHYS ---
Physician Documentation [facility] Name: Matt Paniagua Age: 53 yrs Sex: Male : 1970 Arrival Date: 07/22/2024 Time: 14:43 Bed 9 Private MD: SYLWIA Physician Gonzalez Carmichael HPI: 07/22 15:09 This 53 yrs old Black Male presents to ER via Ambulatory with complaints of Headache. sb4 15:09 The patient complains of pain to the left eye. The patient describes the headache as sb4 constant, pounding. Onset: The symptoms/episode began/occurred 2.5 day(s) ago. Associated signs and symptoms: The patient has no apparent associated signs or symptoms. Headache History: Denies prior headaches. The symptoms are alleviated by nothing. the symptoms are aggravated by nothing. The patient has not experienced similar symptoms in the past. The patient has not recently seen a physician. 15:11 headache behind left eye x 2.5 days. taking tylenol and motrin without relief. denies sb4 any blurry vision, dizziness, nausea, vomiting. Historical: - Allergies: 15:06 No Known Allergies; ld1 - PMHx: 15:06 acid reflux; DVT; Gout; Hypertensive disorder; Kidney stone; ld1 - PSHx: 15:06 cyst removed from leg; Gastric Bypass; Knee sx for meniscus tear; ld1 - Immunization history:: Adult Immunizations up to date. - Infectious Disease History:: Denies. - Social history:: Smoking status: Patient denies any tobacco usage or history of. ROS: 15:09 Constitutional: Negative for fever, chills, and weight loss, sb4 15:09 Neuro: Positive for headache, 15:09 All other systems are negative, Exam: 15:09 Constitutional: This is a well developed, well nourished patient who is awake, alert, sb4 and in no acute distress. Head/Face: Normocephalic, atraumatic. Eyes: Extra-ocular motions intact. Periorbital areas with no swelling, redness, or edema. ENT: Mucous membranes moist. Skin: Warm, dry with normal turgor. Normal color with no rashes, no lesions, and no evidence of cellulitis. MS/ Extremity: Pulses equal, no cyanosis. Neurovascular intact. Full, normal range of motion. Neuro: Awake and alert, GCS 15, oriented to person, place, time, and situation. Motor strength 5/5 in all extremities. Sensory grossly intact. Vital Signs: 15:05 Pulse 56; Resp 18; Temp 97.8(TE); Pulse Ox 100% on R/A; Weight 148.32 kg; Height 6 ft. ld1 1 in. ; Pain 3/10; 15:06 BP 130 / 73; ld1 17:00 BP 138 / 82; Pulse 76; Resp 18; Pulse Ox 100% on R/A; ar6 17:48 BP 134 / 82; Pulse 68; Resp 18; Pulse Ox 100% on R/A; ar6 15:05 Body Mass Index 43.14 (148.32 kg, 185.42 cm) ld1 15:05 Pain Scale: Adult ld1 [place] Com[place] Score: 17:35 Eye Response: spontaneous(4). Motor Response: obeys commands(6). Verbal Response: sb4 oriented(5). Total: 15. MDM: 15:08 Patient medically screened. sb4 17:35 Data reviewed: vital signs, nurses notes, radiologic studies, and as a result, I will sb4 discharge patient. Counseling: I had a detailed discussion with the patient and/or guardian regarding the historical points, exam findings, and any diagnostic results supporting the discharge/admit diagnosis, radiology results, to return to the emergency department if symptoms worsen or persist or if there are any questions or concerns that arise at home. 07/22 15:09 Order name: Head Brain Wo Cont CT; Complete Time: 16:09 sb4 07/22 15:09 Order name: IV Start; Complete Time: 16:49 sb4 Administered Medications: 17:00 Drug: NS 0.9% IV 1000 ml IV at 1 bolus Per protocol; 1000 mL bolus Route: IV; Rate: 1 hb bolus; Site: right hand; 17:47 Follow up: Response: No adverse reaction; IV Status: Completed infusion; IV Intake: ar6 1000ml 17:00 Drug: Ketorolac IVP 15 mg IVP once Route: IVP; Site: right hand; hb 17:35 Follow up: Response: No adverse reaction ar6 17:00 Drug: metoCLOPramide IVP 10 mg IVP once; over 1 to 2 minutes Route: IVP; Site: right hb hand; 17:35 Follow up: Response: No adverse reaction ar6 17:00 Drug: diphenhydrAMINE IVP 25 mg IVP once Route: IVP; Site: right hand; hb 17:35 Follow up: Response: No adverse reaction ar6 Disposition Summary: 07/22/24 17:33 Discharge Ordered Notes: Location: Home sb4 Problem: new sb4 Symptoms: are resolved sb4 Condition: Stable sb4 Diagnosis - Headache sb4 Followup: sb4 - With: Private Physician - When: As needed - Reason: Recheck today's complaints, Re-evaluation by your physician Discharge Instructions: - Discharge Summary Sheet sb4 - General Headache Without Cause, [id number] sb4 Forms: - Patient Portal Instructions sb4 - Leadership Thank You Letter sb4 Prescriptions: - Fioricet 50-300-40 mg Oral capsule - take 2 capsule ORAL route every 4 to 6 hours as needed for pain; do not exceed sb4 6 caps per day; 15 capsule; Refills: 0, Product Selection Permitted Addendum: 07/30/2024 15:33 Co-signature as Attending Physician, Gonzalez Carmichael MD I agree with the assessment and c balderas plan of care. Signatures: Dispatcher [employer] Gonzalez Andersen MD MD cha Baxter, Heather RN RN [facility] Center[facility]fina caldera RN RN ld1 Kate Johnson PA-C PA-C sb4 Evie Farooq RN ar6 Corrections: (The following items were deleted from the chart) 07/22 15:09 15:09 Head Brain Wo Cont+CT.RAD.BRZ ordered. EDMS EDMS
--- NOTE | 2024-07-22 17:33 | ER ---
Nurse's Notes [facility] Name: Matt Paniagua Age: 53 yrs Sex: Male : 1970 Arrival Date: 07/22/2024 Time: 14:43 Bed 9 Private MD: Diagnosis: Headache Presentation: 07/22 15:05 Chief complaint: Patient states: Headache for 3 days. Coronavirus screen: At this time, ld1 the client does not indicate any symptoms associated with coronavirus-19. Ebola Screen: No symptoms or risks identified at this time. Initial Sepsis Screen: Does the patient meet any 2 criteria? No. Patient's initial sepsis screen is negative. Does the patient have a suspected source of infection? No. Patient's initial sepsis screen is negative. Risk Assessment: Do you want to hurt yourself or someone else? Patient reports no desire to harm self or others. Onset of symptoms was July 22, 2024. 15:05 Method Of Arrival: Ambulatory ld1 15:05 Acuity: NASIMA 3 ld1 Triage Assessment: 15:06 Headache History: Denies prior headaches. General: Appears in no apparent distress. ld1 comfortable, Behavior is calm, cooperative, appropriate for age. Pain: Complains of pain in face Pain does not radiate. Pain currently is 3 out of 10 on a pain scale. at worst was 8 out of 10 on a pain scale. Quality of pain is described as throbbing, Pain began suddenly, Is continuous, Also complains of no other associated symptoms. EENT: No signs and/or symptoms were reported regarding the EENT system. Neuro: Level of Consciousness is awake, alert, obeys commands, Oriented to person, place, time, situation, Appropriate for age. Cardiovascular: Capillary refill < 3 seconds Patient's skin is warm and dry. Respiratory: No deficits noted. GI: No signs and/or symptoms were reported involving the gastrointestinal system. : No signs and/or symptoms were reported regarding the genitourinary system. Derm: Musculoskeletal: No signs and/or symptoms reported regarding the musculoskeletal system. Historical: - Allergies: 15:06 No Known Allergies; ld1 - PMHx: 15:06 acid reflux; DVT; Gout; Hypertensive disorder; Kidney stone; ld1 - PSHx: 15:06 cyst removed from leg; Gastric Bypass; Knee sx for meniscus tear; ld1 - Immunization history:: Adult Immunizations up to date. - Infectious Disease History:: Denies. - Social history:: Smoking status: Patient denies any tobacco usage or history of. Screenin:00 [facility] ED Fall Risk Assessment (Adult) History of falling in the last 3 months, ar6 including since admission No falls in past 3 months (0 pts) Confusion or Disorientation No (0 pts) Intoxicated or Sedated No (0 pts) Impaired Gait Yes (1 pt) Mobility Assist Device Used Yes (1 pt) Altered Elimination No (0 pt) Score/Fall Risk Level 0 - 2 = Low Risk Oriented to surroundings, Maintained a safe environment, Educated pt \T\ family on fall prevention, incl call for assistance when getting out of bed, Hourly rounding (assess needs \T\ fall precautionary measures) done, Used ambulatory aids as needed (educated on \T\ assisted with). Abuse screen: Denies threats or abuse. Denies injuries from another. Nutritional screening: No deficits noted. Tuberculosis screening: No symptoms or risk factors identified. Assessment: 17:00 General: Appears in no apparent distress. uncomfortable, Behavior is calm, cooperative, ar6 appropriate for age. Pain: Complains of pain in face Pain currently is 10 out of 10 on a pain scale. Neuro: Level of Consciousness is awake, alert, obeys commands, Oriented to person, place, time, situation. Cardiovascular: Capillary refill < 3 seconds. Respiratory: Airway is patent. GI: Abdomen is round non-distended. : Denies urinary frequency. EENT: Oral mucosa is moist. Derm: Skin is intact, is healthy with good turgor, Skin is dry, Skin is pink, warm \T\ dry. Musculoskeletal: No signs and/or symptoms reported regarding the musculoskeletal system. Vital Signs: 15:05 Pulse 56; Resp 18; Temp 97.8(TE); Pulse Ox 100% on R/A; Weight 148.32 kg; Height 6 ft. ld1 1 in. ; Pain 3/10; 15:06 BP 130 / 73; ld1 17:00 BP 138 / 82; Pulse 76; Resp 18; Pulse Ox 100% on R/A; ar6 17:48 BP 134 / 82; Pulse 68; Resp 18; Pulse Ox 100% on R/A; ar6 15:05 Body Mass Index 43.14 (148.32 kg, 185.42 cm) ld1 15:05 Pain Scale: Adult ld1 [place] Coma Score: 17:35 Eye Response: spontaneous(4). Motor Response: obeys commands(6). Verbal Response: sb4 oriented(5). Total: 15. ED Course: 14:48 Patient arrived in ED. mr 14:56 Kate Johnson PA[facility]C [facility] sb4 14:56 Gonzalez Carmichael MD is Attending Physician. sb4 15:06 Triage completed. ld1 15:06 Arm band placed on right wrist. ld1 15:37 Head Brain Wo Cont CT In Process Unspecified. EDMS 16:48 Rose Mary Leslie, RN is Primary Nurse. hb 16:48 Inserted saline lock: 22 gauge in right hand, using aseptic technique. Flushed with 10 zm mL NS. 17:00 No apparent distress. Awaiting radiology results. ar6 17:00 Patient has correct armband on for positive identification. Placed in gown. Bed in low ar6 position. Call light in reach. Side rails up X2. Provided Education on: medications and fall risk precautions. Pulse ox on. NIBP on. Door closed. Noise minimized. Lights dimmed. Warm blanket given. Head of bed elevated. 17:00 No provider procedures requiring assistance completed. IV is patent. ar6 17:48 IV discontinued, intact, bleeding controlled, No redness/swelling at site. Pressure ar6 dressing applied. Administered Medications: 17:00 Drug: NS 0.9% IV 1000 ml IV at 1 bolus Per protocol; 1000 mL bolus Route: IV; Rate: 1 hb bolus; Site: right hand; 17:47 Follow up: Response: No adverse reaction; IV Status: Completed infusion; IV Intake: ar6 1000ml 17:00 Drug: Ketorolac IVP 15 mg IVP once Route: IVP; Site: right hand; hb 17:35 Follow up: Response: No adverse reaction ar6 17:00 Drug: metoCLOPramide IVP 10 mg IVP once; over 1 to 2 minutes Route: IVP; Site: right hb hand; 17:35 Follow up: Response: No adverse reaction ar6 17:00 Drug: diphenhydrAMINE IVP 25 mg IVP once Route: IVP; Site: right hand; hb 17:35 Follow up: Response: No adverse reaction ar6 Medication: 17:00 VIS not applicable for this client. ar6 Intake: 17:47 IV: 1000ml; Total: 1000ml. ar6 Outcome: 17:33 Discharge ordered by . sb4 17:48 Discharged to home ambulatory, ar6 17:48 Condition: good 17:48 Discharge instructions given to patient, significant other, Instructed on discharge instructions, follow up and referral plans. medication usage, Demonstrated understanding of instructions, follow-up care, medications, Prescriptions given X 1, 17:49 Patient left the ED. ar6 Signatures: Dispatcher [employer] EDAK Mai Pride, Reg Reg mr Rose Mary Leslie, RN RN Josefina Silverio, RN RN ld1 Kati Collier Sophia, PA-C PA-C [id number] Evie Farooq, RN RN ar6
[2024-07-22 18:27] VITALS: TEMP 97.8; O2SAT 100
[2024-07-22 18:33] VITALS: BP 134/82
== END 2024-07-22 17:49 | disposition home or self-care (01) ==
LOC: ER 14:43
DX: R51.9 Headache, unspecified (principal); I10 Essential (primary) hypertension
CPT/HCPCS: 96361; 70450; 96375; 96374; 99284; J2765; J1200; J7030